=== PATIENT | female | born 1980 | race Two or more races ===

== ENCOUNTER 2020-03-21 07:29 | Outpatient (CLI) | payer OTHER ==
[~2020-03-21 07:29] MED LIST: AMOX TR-K CLV 21 TAB; AMOX1TAB12 PO; FLONASE16 GM NS; GILTUSS TR TAB1 EACH PO; PROTONIX40 MG PO; ZITHROMAX TRI-500 MG PO; ZOFRAN4 MG SL; ZYRTEC10 MG PO
== END 2020-03-21 07:30 | disposition home or self-care (01) ==
LOC: MAMO-SONO 07:29
DX: Z12.31 Encounter for screening mammogram for malignant neoplasm of breast (principal); N60.11 Diffuse cystic mastopathy of right breast; N60.12 Diffuse cystic mastopathy of left breast

== ENCOUNTER 2021-05-18 07:25 | Outpatient (CLI) | payer OTHER | END 2021-05-18 07:38 | disposition home or self-care (01) | LOC: MAMO-SONO 07:25 | DX: Z12.39 Encounter for other screening for malignant neoplasm of breast (principal) ==

== ENCOUNTER 2022-06-25 09:15 | Outpatient (CLI) | payer OTHER | END 2022-06-25 09:29 | disposition home or self-care (01) | LOC: MAMO-SONO 09:15 | DX: Z12.39 Encounter for other screening for malignant neoplasm of breast (principal); N60.29 Fibroadenosis of unspecified breast ==